=== PATIENT | male | born 1965 | race Caucasian/White ===

== ENCOUNTER 2017-07-12 08:54 | Emergency (ER) | payer MEDICAID ==
[~2017-07-12] VITALS: Ht 160 cm; Wt 68.0 kg
[~2017-07-12 08:54] MED LIST: IBUPROFEN600 MG ORAL; TAMSULOSIN HCL0.4 MG ORAL; UNOBMED
[2017-07-12] MEDS: Norco 5mg/325mg tab ORAL ONE (09:20)
--- NOTE | 2017-07-12 09:20 | Emergency Room Report ---
History of Present Illness General Chief Complaint: Abdominal Pain Source: Patient Present Illness HPI 52-year-old male walks in with chief complaint of 2 days of painful urination, pain to top of left testicle. Denies swelling of the scrotum, blood in urine. Denies abdominal pain, vomiting, diarrhea, fever. Not currently sexual active. Patient had small 1 mm obstructive stone on the left side on CT last year Allergies: Coded Allergies: No Known Allergies (Unverified , 05/19/16) Patient History Past Medical History: other - renal stone Past Surgical History: none Pertinent Family History: none Social History: Denies: smoking, alcohol use, drug use Immunizations: UTD Reviewed Nursing Documentation: PMH: Agreed, PSxH: Agreed Nursing Documentation-PMH Past Medical History: No History, Except For Hx Hypertension: Yes Hx Diabetes: Yes Review of Systems All Other Systems: negative except mentioned in HPI Physical Exam Vital Signs Date Time Temp Pulse Resp B/P (MAP) Pulse Ox O2 Delivery O2 Flow Rate FiO2 07/12/17 08:58 97.9 95 16 135/77 99 Sp02 EP Interpretation: reviewed, normal General Appearance: normal inspection, well appearing, no apparent distress, alert, GCS 15, non-toxic Head: normocephalic, atraumatic Eyes: bilateral eye PERRL, bilateral eye EOMI ENT: normal ENT inspection, hearing grossly normal, normal pharynx, no angioedema, normal voice, TMs + canals normal, uvula midline, moist mucus membranes Neck: normal inspection, full range of motion, supple, thyroid normal, no meningismus, no bony tend Respiratory: normal inspection, lungs clear, normal breath sounds, no rhonchi, no respiratory distress, no retraction, no accessory muscle use, no wheezing, speaking full sentences Cardiovascular #1: regular rate, rhythm, no edema, no JVD, normal capillary refill Gastrointestinal: normal inspection, normal bowel sounds, non tender, soft, no mass, no peritonitis, non-distended, no guarding, no hernia, no pulsatile mass Genitourinary: no CVA tenderness, penis normal, other - Mild ttp to left epididymitis and left inguinal area. No swelling or erythema Musculoskeletal: normal inspection, back normal, normal range of motion, no calf tenderness, pelvis stable, Carlitos's Sign negative Neurologic: normal inspection, alert, oriented x3, responsive, phd internship III-XII nml as tested, motor strength/tone normal, cerebellar normal, normal gait, speech normal Psychiatric: normal inspection, judgement/insight normal, mood/affect normal, no suicidal/homicidal ideation, no delusions Skin: normal inspection, normal color, no rash Lymphatic: normal inspection, no adenopathy Medical Decision Making Diagnostic Impression: Primary Impression: Testicular pain, left Additional Impressions: Hydrocele in adult Renal calculus ER Course Testicular ultrasound shows small left hydrocele Incidental finding of 5 mm stone in the left kidney with questionable mild hydronephrosis No stone in the ureter or ureteral edema Patient was given IV pain medication with resolution of pain likely recurring kidney stone given known history of kidney stones Mild leukocytosis likely to attributed to stress reaction from pain UA negative for infection. Unlikely to be UTI or epididymitis without WBCs in urine No epididymitis on scrotal ultrasound per verbal tech report No additional obstructive stones on renal ultrasound Mild left sided hydro on official sono, ?stone at [facility] no PAMELA on labs Was given oral and IV pain medication with improvement ER course: Patient has remained stable during ED stay. Patient is to be discharged to home. Prescriptions given are motrin, norco, flomax Patient is instructed to follow up with their primary care doctor within 5 days. Patient is instructed to follow up with renal specialist within 1 week Strict return precautions discussed with patient such as fever, chills, worsening/severe pain, nausea, vomiting, which may indicate severe illness. Patient verbalizes understanding and agrees with plan. Please note that this Emergency Department Report was dictated using [employer] transfer technology software, occasionally this can lead to erroneous entry secondary to interpretation by the dictation equipment Last Vital Signs Date Time Temp Pulse Resp B/P (MAP) Pulse Ox O2 Delivery O2 Flow Rate FiO2 07/12/17 08:58 97.9 95 16 135/77 99 Status: improved Disposition: HOME, SELF-CARE Scripts Tamsulosin HCl (Flomax) 0.4 Mg Cap.er.24h 0.4 MG ORAL DAILY for 7 Days, #7 CAP Prov: MAZIN KING M.D. 07/12/17 Hydrocodone Bit/Acetaminophen 5-325* (NORCO 5-325*) 1 Each Tablet 1 TAB ORAL DAILY Y for Severe Breakthru Pain (>7) for 7 Days, #7 TAB 0 Refills Prov: MAZIN KING M.D. 07/12/17 Ibuprofen* (MOTRIN*) 600 Mg Tablet 600 MG ORAL THREE TIMES A DAY for For Pain for 7 Days, #30 TAB 0 Refills Prov: MAZIN KING M.D. 07/12/17 Referrals: NON PHYSICIAN (PCP) MAZIN KING M.D. Jul 12, 2017 09:20
[2017-07-12 09:58] LABS: APPEARANCE,URINE CLEAR; KETONES,URINE NEGATIVE (NEGATIVE); LEUKOCYTE ESTERASE ,URINE NEGATIVE (NEGATIVE); NITRITE,URINE NEGATIVE (NEGATIVE); PH,URINE 7 (4.5-8.0); PROTEIN,URINE NEGATIVE (NEGATIVE); UROBILINOGEN,URINE NORMAL MG/DL (0.0-1.0)
[2017-07-12 10:11] LABS: BACTERIA,URINE OCCASIONAL /HPF; RBC,URINE 0-2 /HPF (0 - 0); SQUAMOUS EPITHELIAL CELL,UR OCCASIONAL /LPF (NONE/OCC); WBC,URINE 0-2 /HPF (0 - 0)
[2017-07-12] MEDS: Ketorolac 30mg Inj IV ONE (10:40)
[2017-07-12] MEDS: Morphine Sulfate 4mg/ml Inj IVP ONE (10:41)
[2017-07-12 10:57] LABS: BASOPHILS % (AUTO) 0.7 % (0.0-2.0); EOSINOPHILS % (AUTO) 1.9 % (0.0-3.0); LYMPHOCYTES % (AUTO) 21.9 % (20.0-45.0); MEAN CORPUSCULAR HEMOGLOBIN 32.3 PG (27.0-31.0); MEAN CORPUSCULAR HGB CONC 32.2 G/DL (32.0-36.0); MEAN CORPUSCULAR VOLUME 100 FL (80-99); MEAN PLATELET VOLUME 9.6 FL (6.5-10.1); MONOCYTES % (AUTO) 6.9 % (1.0-10.0); NEUTROPHILS % (AUTO) 68.6 % (45.0-75.0); PLATELET COUNT 232 K/UL (150-450); RED BLOOD COUNT 4.85 M/UL (4.70-6.10); RED CELL DISTRIBUTION WIDTH 11.9 % (11.6-14.8); WHITE BLOOD COUNT 14.4 K/UL (4.8-10.8)
[2017-07-12 11:07] LABS: ANION GAP 4 mmol/L (5-15); CALCIUM 9.6 MG/DL (8.5-10.1); CARBON DIOXIDE 30 MMOL/L (21-32); CHLORIDE 104 MMOL/L (98-107); CREATININE 0.8 MG/DL (0.55-1.30); GLOMERULAR FILTRATION RATE > 60 mL/min (>60); POTASSIUM 4.2 MMOL/L (3.5-5.1); SODIUM 138 MMOL/L (136-145)
[2017-07-12 11:12] LABS: ALANINE AMINOTRANSFERASE 35 U/L (12-78); ASPARTATE AMINO TRANSFERASE 20 U/L (15-37); TOTAL PROTEIN 8.1 G/DL (6.4-8.2)
[2017-07-12] MEDS ORDERED: FLOMAX0.4 MG ORAL (11:22)
[2017-07-12] MEDS ORDERED: NORCO 5-325 TA1 EACH ORAL (11:22)
[2017-07-12] MEDS ORDERED: IBUPROFEN600 MG ORAL (11:22)
--- NOTE | 2017-07-12 11:29 | Diagnostic Imaging Report ---
Indications: Left sided scrotal and inguinal pain Technique: Grayscale and duplex images of the scrotum Comparison: none Findings:The right testicle measures 4.4cm in length. It demonstrates normal echogenicity. Normal Doppler flow. Normal epididymis. There is a trace hydrocele and possible spermatic cord varicocele The left testicle measures 4.1 cm in length. It demonstrates normal echogenicity and normal Doppler flow. Normal epididymis. Trace hydrocele and possible inguinal canal varicocele Impression: Normal bilateral epididymes No acute abnormality Trace bilateral hydroceles and possible bilateral small inguinal canal varicoceles
[2017-07-12 11:46] VITALS: BP 104/67
[2017-07-12 12:35] VITALS: BP 104/67
--- NOTE | 2017-07-12 14:24 | Diagnostic Imaging Report ---
Indication: Reason For Exam: PAIN Technique: Grayscale and duplex images of the kidneys, retroperitoneum, and bladder were obtained. Comparison: Reference made to CT scan 05/19/2016 Findings: Right kidney measures 11 cm in length. Left kidney measures 11.5 cm in length. Both kidneys demonstrate normal echogenicity. There is mild left hydronephrosis, and suggestion of a calculus near the right ureterovesical junction. There is also suggestion of distal right hydroureter. However, a right ureteral jet is demonstrated. There is mild fullness of the left renal collecting system, also demonstrated on prior CT. Left lower pole calcification is also visualized on prior CT. There is a lower pole right renal cyst. Normal inferior vena cava. Bladder is normal. Prostate volume is 21 mL Impression: Possible right distal ureteral calculus resulting in mild hydronephrosis Mild fullness left renal collecting system, significance uncertain. Left lower pole renal calculus, also demonstrated on prior CT. Consider CT for further evaluation of the above findings Incidental finding right lower pole renal cyst
== END 2017-07-12 12:35 | disposition home or self-care (01) ==
LOC: EMR 09:10
DX: N50.812 Left testicular pain (principal); N43.3 Hydrocele, unspecified; N13.2 Hydronephrosis with renal and ureteral calculous obstruction; I10 Essential (primary) hypertension; E11.9 Type 2 diabetes mellitus without complications
CPT/HCPCS: 36415; 76775; 76870; 80053; 81003; 85025; 96374; 96375; 99284; J1885; J2270; J2405